=== PATIENT | female | born 1955 | race Two or more races ===

== ENCOUNTER 2020-08-06 10:10 | Outpatient (CLI) | payer OTHER | END 2020-08-06 10:15 | disposition home or self-care (01) | LOC: SONOGRAMA 10:10 | PROVIDERS: ATTEND Pathology Anatomic Pathology & Clinical Pathology | DX: D34 Benign neoplasm of thyroid gland (principal); E04.2 Nontoxic multinodular goiter; E04.8 Other specified nontoxic goiter ==

== ENCOUNTER 2023-12-31 20:19 | Emergency (ER) | payer OTHER ==
[~2023-12-31] VITALS: Ht 162.6 cm; Wt 68.0 kg
[2023-12-31] MEDS ORDERED: COZAAR25 MG PO (20:54)
[2023-12-31] MEDS ORDERED: EFFEXOR XR75 MG PO (20:54)
[2023-12-31] MEDS ORDERED: METHYLPREDNISOLONE SOD SUCC 125 MG VIAL IM ONE (21:45)
== END 2023-12-31 21:56 | disposition home or self-care (01) ==
LOC: ER 20:20
DX: R21 Rash and other nonspecific skin eruption (principal); T78.40XA Allergy, unspecified, initial encounter; I10 Essential (primary) hypertension; Z88.2 Allergy status to sulfonamides; Z88.5 Allergy status to narcotic agent
CPT/HCPCS: 96372; 99282; J3490

== ENCOUNTER 2024-02-07 18:48 | Emergency (ER) | payer OTHER ==
[~2024-02-07] VITALS: Ht 157.5 cm; Wt 64.4 kg
[~2024-02-07 18:48] MED LIST: COZAAR25 MG PO; EFFEXOR XR75 MG PO
[2024-02-07] MEDS ORDERED: HYZAAR 100-251 EACH PO (18:53)
[2024-02-07] MEDS ORDERED: VENLAFAXINE HC150 MG PO (18:54)
[2024-02-07] MEDS ORDERED: METOPROLOL SUCC50 MG PO (18:54)
[2024-02-07] MEDS ORDERED: BENZONATATE 100 MG CAPSULE PO ONE (19:15)
[2024-02-07] MEDS ORDERED: GUAIFENESIN 200 MG/10 ML BLIST.PACK PO ONE ×2 (19:15→19:54)
[2024-02-07 20:38] LABS: HEMOGLOBIN 13.1 g/dL (12.0-15.00); MEAN CELL VOLUME 87.6 fL (80.00-100.00); MEAN CORPUSCULAR HEMOGLOBIN 29.5 pg (27.00-32.0); MEAN CORPUSCULAR HGB CONC 33.6 g/dl (32.0-36.0); PLATELET COUNT 353 K/uL (150-450); RED BLOOD COUNT 4.45 M/uL (4.00-6.00); RED CELL DISTRIBUTION WIDTH 13.3 % (11.5-14.5)
[2024-02-07] MEDS ORDERED: PEPCID AC20 MG PO (21:17)
[2024-02-07] MEDS ORDERED: BENZONATATE200 M1 PO (21:17)
[2024-02-07] MEDS ORDERED: AZITHROMYCIN1 GM PO (21:17)
== END 2024-02-07 21:26 | disposition home or self-care (01) ==
LOC: ER 18:50
PROVIDERS: General Practice
DX: J00 Acute nasopharyngitis [common cold] (principal); R05.9 Cough, unspecified; Z20.822 Contact with and (suspected) exposure to COVID-19; I10 Essential (primary) hypertension; Z88.2 Allergy status to sulfonamides; Z88.5 Allergy status to narcotic agent

== ENCOUNTER 2024-06-06 14:43 | Emergency (ER) | payer OTHER ==
[~2024-06-06] VITALS: Ht 157.5 cm; Wt 63.5 kg
[~2024-06-06 14:43] MED LIST changes: +AZITHROMYCIN1 GM PO; +BENZONATATE200 M1 PO; +HYZAAR 100-251 EACH PO; +METOPROLOL SUCC50 MG PO; +PEPCID AC20 MG PO; +VENLAFAXINE HC150 MG PO
[2024-06-06] MEDS ORDERED: ACID REDUCER20 M1 PO (15:32)
[2024-06-06] MEDS ORDERED: MECLIZINE HCL 25 MG TABLET PO ONE ×2 (17:00→17:26)
[2024-06-06] MEDS ORDERED: ONDANSETRON HCL 2 MG/ML VIAL IV ONE (17:00)
[2024-06-06] MEDS ORDERED: ONDANSETRON HCL 2 MG/ML VIAL ONE (17:26)
[2024-06-06 17:39] LABS: HEMOGLOBIN 13.6 g/dL (12.0-15.00); MEAN CELL VOLUME 87.1 fL (80.00-100.00); MEAN CORPUSCULAR HEMOGLOBIN 29.7 pg (27.00-32.0); MEAN CORPUSCULAR HGB CONC 34.1 g/dl (32.0-36.0); PLATELET COUNT 280 K/uL (150-450); RED BLOOD COUNT 4.59 M/uL (4.00-6.00)
[2024-06-06 18:11] LABS: ALBUMIN 3.8 gm/dL (3.4-5.0); BILIRUBIN TOTAL 0.42 mg/dL (0.3-1.2); CALCIUM 9.6 mg/dL (8.5-10.1); CREATININE SERUM 0.6 mg/dL (0.55-1.02); GFR 99.12; GLOBULINA 3.9 G/DL (2.4-3.5); POTASSIUM 3.88 mEq/L (3.5-5.1); TOTAL PROTEIN 7.7 gm/dL (6.4-8.2)
[2024-06-06] MEDS ORDERED: MECLIZINE HCL25 MG PO (20:01)
== END 2024-06-06 20:19 | disposition home or self-care (01) ==
LOC: ER 14:46
PROVIDERS: General Practice
DX: R42 Dizziness and giddiness (principal); I10 Essential (primary) hypertension; Z88.2 Allergy status to sulfonamides; Z88.8 Allergy status to other drugs, medicaments and biological substances